=== PATIENT | female | born 1965 | race Caucasian/White ===

== ENCOUNTER 2018-07-04 09:59 | Outpatient (REF) | payer BC, SELFPAY ==
[2018-07-04 13:24] LABS: Abs Immature Grans 0.01 k/cumm (0.0-0.09); Absolute Basophil Count 0.07 k/cumm (0.0-0.2); Absolute Eosinophil Count 0.23 k/cumm (0.0-0.7); Absolute Monocyte Count 0.57 k/cumm (0.11-0.7); Absolute Neutrophil Count 2.31 k/cumm (1.2-6.7); Basophils % 1.3; Eosinophils % 4.3; HCT 40.4 % (36.0-46.0); HGB 13.6 g/dL (12.0-15.5); Immature Grans % 0.2; Lymphocytes % 40.8; Mean Corp. HGB Concentration 33.7 g/dL (32.0-36.0); Mean Corpuscular Hemoglobin 31.1 pg (27.0-33.0); Mean Corpuscular Volume 92.4 fL (80-95); Mean Platelet Volume 13.9 fL (8.0-11.0); Monocytes % 10.6; Neutrophils % 42.8; Platelet Count 241 x1000/uL (130-400); RBC 4.37 m/cumm (4.00-5.20); RBC Distribution Width 12.4 % (11.7-14.6); White Blood Cell Count 5.39 k/cumm (4.4-10.8)
[2018-07-04 13:46] LABS: ALT 29 U/L (12-78); AST 22 U/L (15-37); Albumin 3.8 g/dL (3.4-5.0); Alkaline Phosphatase 56 U/L (46-116); Anion Gap 8.2 mmol/L (3-11); BUN 14 mg/dL (7-18); Bilirubin, Total 0.5 mg/dL (0.2-1.0); CO2 26.8 mmol/L (21.0-32.0); CREATININE 0.78 mg/dL (0.55-1.02); Calcium 9.1 mg/dL (8.5-10.1); Chloride 104 mmol/L (98-107); Glucose 91 mg/dL (70-100); Potassium 4.6 mmol/L (3.5-5.1); Sodium 139 mmol/L (136-145); TSH (W/Ref FT4) 1.69 uIU/mL (0.358-3.74)
[2018-07-04 14:08] LABS: ESR 6 MM/HR (0-30)
[2018-07-04 14:14] LABS: C-Reactive Protein 0.11 mg/dL (0.0-0.3)
== END 2018-07-04 10:19 ==
LOC: NCHCN 09:59
PROVIDERS: Visit Provider Family Medicine
DX: R51 Headache (principal); R53.83 Other fatigue
CPT/HCPCS: 80053; 85652; 84443; 85025; 86140

== ENCOUNTER 2019-01-28 01:11 | Outpatient (CLI) | payer BC, SELFPAY ==
--- NOTE | 2019-01-28 16:38 | DI.MAMMO_ITS ---
SYMPTOMS/DIAGNOSIS: SCREENING, Z12.31 MAMMOGRAM: Mammograms were interpreted according to the usual protocol including computer analysis with CAD system, tomosynthesis and C view imaging. The breasts are of moderate density with fairly symmetrical distribution of fibroglandular tissue. No dominant mass or clumped microcalcification is identified in either breast. Current examination is compared with the previous examinations including January 2017 and there is a question of increased prominence of a focal area of asymmetric density with a vaguely nodular appearance in the upper outer quadrant of the left breast. Additional mammographic views of the left breast are requested to include MLO and CC spot compression views. Left breast ultrasound recommended, as well. CONCLUSION: Additional mammographic views of the left breast requested as described above. Breast ultrasound also recommended. Category 0, breast density category B. MQSA ASSESSMENT OF FINDINGS: Incomplete: Needs additional imaging evaluation. Category 0. Patient will receive a letter notifying them of these results. BI-RADS category B. There are scattered areas of fibroglandular density.
== END 2019-01-28 01:31 ==
PROVIDERS: PCP Nurse Practitioner Family; Visit Provider Nurse Practitioner Family
DX: Z12.31 Encounter for screening mammogram for malignant neoplasm of breast (principal); R92.8 Other abnormal and inconclusive findings on diagnostic imaging of breast
CPT/HCPCS: 77063; 77067

== ENCOUNTER 2019-01-30 01:01 | Outpatient (CLI) | payer BC, SELFPAY ==
--- NOTE | 2019-01-30 14:47 | DI.COMBO_ITS ---
SYMPTOM/DIAGNOSIS: F/U MAMMO, INCREASED PROMINENCE OF ASYMMETRIC DENSITY LEFT BREAST ADDITIONAL VIEWS AND LEFT BREAST ULTRASOUND: Additional images are interpreted according to the usual protocol including tomosynthesis and 2D imaging. Additional mammographic views of the left breast and left breast ultrasound are interpreted in conjunction. These examinations were obtained to evaluate questionable area of asymmetric density in the upper outer quadrant of the left breast seen on recent mammogram. Additional mammographic views fail to show a discrete mass. Breast ultrasound shows no evidence of a mass or cyst. CONCLUSION: No specific evidence of malignancy at this time. A follow up unilateral left breast mammogram is recommended in 6 months. Category 3. Breast density, Category B. MQSA ASSESSMENT OF FINDINGS: Probably benign. Six month follow-up recommended. Category 3. Patient will receive a letter notifying them of these results. BI-RADS category B. There are scattered areas of fibroglandular density.
== END 2019-01-30 01:21 ==
PROVIDERS: PCP Nurse Practitioner Family; Visit Provider Nurse Practitioner Family
DX: Z12.31 Encounter for screening mammogram for malignant neoplasm of breast (principal); R92.8 Other abnormal and inconclusive findings on diagnostic imaging of breast; N64.59 Other signs and symptoms in breast
CPT/HCPCS: 76642; 77063; 77067

== ENCOUNTER 2019-08-12 00:53 | Outpatient (CLI) | payer BC, SELFPAY ==
--- NOTE | 2019-08-12 14:47 | DI.MAMMO_ITS ---
EXAM: MG MAMMO DIAGNOSTIC UNI CLINICAL HISTORY: F/U ABNL MAMMO, 6 MO. F/U, R92.8 TECHNIQUE: Mammograms were interpreted according to the usual protocol including computer analysis w [employer] system, tomosynthesis and C-view imaging. COMPARISON: Comparison with previous examinations including January 2019 FINDINGS: Unilateral left breast mammogram was performed. No mass or clumped microcalcification seen. Compari son with previous examinations including January 2019 with no significant interval change in appearance. IMPRESSION: No specific evidence of malignancy at this time. I would suggest that routine screening examinations resume with a bilateral mammogram in 6 months. Category 3, breast density category B. BI-RADS Cat 3 - Annual - Resume Annual Screening Breast Density - Category B - Scattered areas of fibroglandular density
== END 2019-08-12 01:13 ==
PROVIDERS: PCP Nurse Practitioner Family; Visit Provider Nurse Practitioner Family
DX: Z12.31 Encounter for screening mammogram for malignant neoplasm of breast (principal); R92.8 Other abnormal and inconclusive findings on diagnostic imaging of breast; N64.59 Other signs and symptoms in breast
CPT/HCPCS: 77061; 77065; G0279

== ENCOUNTER 2020-05-19 01:04 | Outpatient (CLI) | payer BC, SELFPAY ==
--- NOTE | 2020-05-19 | DI.MAMMO_ITS ---
EXAM: MG MAMMO SCREENING CLINICAL HISTORY: SCREENING,Z12.31 TECHNIQUE: Mammograms were interpreted according to the usual protocol including computer analysis w [employer] CAD system, tomosynthesis and C-view imaging. COMPARISON: FINDINGS: The breasts are of moderate density with fairly symmetrical distribution of fibroglandular tissue. N o dominant mass or clumped microcalcification is identified in either breast. The current examinatio n is compared with previous examinations including January 2019 and there has been no gross interval yue nge in appearance in comparison with the prior studies. IMPRESSION: No specific evidence of malignancy at this time. Routine screening examinations are suggested at yea rly intervals in this age group according to the ACS ACR guidelines. BI-RADS Category 1 - Negative Breast Density - Category B - Scattered areas of fibroglandular density
== END 2020-05-19 01:24 ==
PROVIDERS: PCP Nurse Practitioner Family; Visit Provider Nurse Practitioner Family
DX: Z12.31 Encounter for screening mammogram for malignant neoplasm of breast (principal)
CPT/HCPCS: 77063; 77067

== ENCOUNTER 2021-05-13 15:11 | Outpatient (REF) | payer BC, SELFPAY ==
--- NOTE | 2021-05-13 10:00 | PAPFT_PTH ---
PATIENT: Elyssa Shelley LOC: [facility]#:[id number] AGE/SX: 55/F ROOM: RE05/13/[address]: Nayely Haley : 1965 BED: DIS: 05/13/2021 SPEC #: [id number] RECD: 05/13/21 17:24 STATUS: KEVIN REDann #: [id number] JUAN: 05/13/21 10:[address]: Nayely Haley DEPT: REPLACED BY [facility] Cytology RECD BY: Karen Godinez Tissues: 1 - CX/ENDOCX FOR PAP SMEARS Procedures: PAP THIN PREP/UVM Screening Comments: [id number]
[2021-05-13 15:44] LABS: ALT 35 U/L (14-59); AST 19 U/L (15-37); Anion Gap 8.6 mmol/L (3-11); BUN 19 mg/dL (7-18); CO2 28.4 mmol/L (21.0-32.0); CREATININE 0.9 mg/dL (0.55-1.02); Calcium 9.7 mg/dL (8.5-10.1); Calculated LDL 209 mg/dL (<100); Chloride 103 mmol/L (98-107); Cholesterol 289 mg/dL (<200); Glucose 96 mg/dL (74-106); HDL Cholesterol 63 mg/dL (40-60); Potassium 4.9 mmol/L (3.5-5.1); Sodium 140 mmol/L (136-145); Triglyceride 87 mg/dL (<150)
[2021-05-14 10:14] LABS: HIV-1/2 Ag & Ab Screen Negative (Negative)
[2021-05-14 10:34] LABS: Hepatitis C Ab w Rflx HCV PCR Negative (Negative)
== END 2021-05-13 15:12 | disposition home or self-care (01) ==
LOC: NCHCN 15:11
PROVIDERS: PCP Nurse Practitioner Family; Visit Provider Nurse Practitioner Family
DX: Z00.00 Encounter for general adult medical examination without abnormal findings (principal); Z11.4 Encounter for screening for human immunodeficiency virus [HIV]; Z11.59 Encounter for screening for other viral diseases; Z12.4 Encounter for screening for malignant neoplasm of cervix; Z13.220 Encounter for screening for lipoid disorders
CPT/HCPCS: 80048; 80061; 86803; 87389; 88142; 84450; 84460

== ENCOUNTER 2021-11-02 01:48 | Outpatient (CLI) | payer BC, SELFPAY ==
--- NOTE | 2021-11-02 14:00 | DI.MAMMO_ITS ---
Exam(s) MAMMO SCREENING EXAM: MAMMO SCREENING CLINICAL HISTORY: SCREENING, Z12.31 TECHNIQUE: Bilateral full field digital CC and MLO mammographic images were obtained with 3D tomosyn thesis and utilizing computer aided detection (CAD). COMPARISON: Available for comparison. FINDINGS: Masses/Architectural Distortion: There is a 6 mm nodular density in the upper-outer quadrant of the r ight breast which should be further evaluated. This was not present on the prior examination. Microcalcifications: No suspicious pleomorphic-type are seen. Skin Thickening/Nipple Retraction: None. IMPRESSION: 1. 6 mm nodular density in the upper-outer quadrant of the right breast. 2. Spot compression views are requested for further evaluation. Ultrasound should be obtained at horace t time. BI-RADS Category 0 - Assessment Incomplete: Need additional imaging evaluation Breast Density - Category B - Scattered areas of fibroglandular density Breast density category C or D implies that the patient has dense breast tissue. Dense breast tissue is very common and is not abnormal but dense breast tissue can make it harder to find cancer on a ma mmogram. Also, dense breast tissue may increase their breast cancer risk. This information about the result of the mammogram report was provided to the patient to raise their awareness. Use this report when you speak with the patient about their risks for breast cancer, which includes their family hist ory. At that time, you may recommend for more screening tests (Ultrasound or MRI) as they might be us eful based on their risk. A negative radiographic report should not delay biopsy if a dominant or clinically suspicious mass is present. Up to ten percent of cancers are not identified on mammography. A negative report may reinforce clinical impression. Adenosis and dense breasts may obscure an underlying neoplasm. False positive reports average 6 to 10%. Patient will receive a letter notifying them of these results.
== END 2021-11-02 02:08 ==
PROVIDERS: PCP Nurse Practitioner Family; Visit Provider Nurse Practitioner Family
DX: Z12.31 Encounter for screening mammogram for malignant neoplasm of breast (principal); R92.8 Other abnormal and inconclusive findings on diagnostic imaging of breast
CPT/HCPCS: 77063; 77067

== ENCOUNTER 2021-11-09 00:44 | Outpatient (CLI) | payer BC, SELFPAY ==
--- NOTE | 2021-11-09 | DI.MAMMO_ITS ---
Exam(s) MG MAMMO SCREEN CALL BACK UNI US BREAST RT COMPLETE EXAM: MAMMO SCREEN CALL BACK UNI CLINICAL HISTORY: 6MM NODULAR DENSITY RT BREAST. TECHNIQUE: Unilateral spot mammographic images obtained with 3D tomosynthesisand utilizing computer aided detection (CAD). . Complete right breast Ultrasound was also performed, including all 4 quadrants, the retroareolar stanley on, and the ipsilateral axilla. COMPARISON: Prior mammograms were reviewed. This additional imaging was performed due to findings described on the recent screening mammogram of 11/02/2021. FINDINGS: Additional mammographic views performed todayrender this area less concerning. Ultrasound performed today reveals a solitary finding which is at the 8 o'clock position and has the appearance of a wider than taller 6 x 3 millimeter probable hemorrhagic microcyst. Exhibits neutral through transmission.. No other findings on ultrasound of the quadrants of the right breast and no s ignificant right axillary adenopathy. IMPRESSION: There is a 6 x 3 millimeter probable hemorrhagic microcyst at the 8 o'clock position probably corresp onds to the finding on the mammogram. Appropriate follow-up is repeat right breast imaging in 6 months, this to include repeat right breas t mammogram and ultrasound.. The patient was informed of these findings and recommendations prior to leaving the department today. BI-RADS Category 3 - 6 month - Probably Benign Finding: Recommend follow-up mammography in 6 months Breast Density - Category B - Scattered areas of fibroglandular density Breast density Category C or D implies that the patient has dense breast tissue. Dense breast tissue can make it harder to find cancer on a mammogram. Dense breast tissue is also associated with an incr eased risk of breast cancer. This information about the result of the mammogram report was provided to the patient to raise their awareness. Use this report when you speak with the patient about their risks for breast cancer, which includes their family history. At that time, you may recommend additional screening tests (Ultrasoun d or MRI) as these tests may add significant information. A negative radiographic report should not delay biopsy if a dominant or clinically suspicious mass is present. Up to ten percent of cancers are not identified on mammography. A negative report may reinforce clinical impression. Adenosis and dense breasts may obscure an underlying neoplasm. False positive reports average 6 to 10%. Patient will receive a letter notifying them of these results.
== END 2021-11-09 01:04 ==
PROVIDERS: PCP Nurse Practitioner Family; Visit Provider Nurse Practitioner Family
DX: Z12.31 Encounter for screening mammogram for malignant neoplasm of breast (principal); R92.8 Other abnormal and inconclusive findings on diagnostic imaging of breast; N60.01 Solitary cyst of right breast
CPT/HCPCS: 76642; 77063; 77067

== ENCOUNTER 2021-11-10 13:34 | Outpatient (REF) | payer BC, SELFPAY ==
[2021-11-10 17:08] LABS: ALT 39 U/L (14-59); AST 25 U/L (15-37); Albumin 3.9 g/dL (3.4-5.0); Alkaline Phosphatase 96 U/L (46-116); Bilirubin, Total 0.4 mg/dL (0.2-1.0); Calculated LDL 86 mg/dL (<100); Cholesterol 159 mg/dL (<200); HDL Cholesterol 66 mg/dL (40-60); Total Protein 7.2 g/dL (6.4-8.2); Triglyceride 38 mg/dL (<150)
[2021-11-10 17:17] LABS: Bilirubin, Direct 0.1 mg/dL (0.0-0.2)
== END 2021-11-10 13:35 | disposition home or self-care (01) ==
LOC: NCHCN 13:34
PROVIDERS: PCP Nurse Practitioner Family; Visit Provider Nurse Practitioner Family
DX: Z00.00 Encounter for general adult medical examination without abnormal findings (principal); R53.83 Other fatigue; R51.9 Headache, unspecified; R79.89 Other specified abnormal findings of blood chemistry
CPT/HCPCS: 80061; 80076

== ENCOUNTER 2022-06-02 17:52 | Outpatient (REF) | payer BC, SELFPAY ==
[2022-06-04 11:29] LABS: COVID-19 RT-PCR UVMMC Result Negative (Negative)
== END 2022-06-02 17:53 | disposition home or self-care (01) ==
LOC: LBN 17:52
PROVIDERS: PCP Nurse Practitioner Family; Visit Provider Physician Assistant Medical
DX: Z20.822 Contact with and (suspected) exposure to COVID-19 (principal); H92.01 Otalgia, right ear
CPT/HCPCS: U0003

== ENCOUNTER 2022-09-01 00:56 | Outpatient (CLI) | payer BC, SELFPAY ==
--- NOTE | 2022-09-01 | DI.US_ITS ---
Exam(s) US BREAST LT COMPLETE US BREAST RT COMPLETE MG MAMMO DIAGNOSTIC BI EXAM: MG MAMMO DIAGNOSTIC BI AND BILATERAL COMPLETE BREAST ULTRASOUND CLINICAL HISTORY: DIAGNOSTIC, HO ABNL MAMMO, R92.8,MICROCYST. TECHNIQUE: BILATERAL CC AND MLO mammographic images were obtained with 3D tomosynthesis technique an d utilizing computer aided detection (CAD). Also performed additional spot compression CC view of le ft breast. ALSO PERFORMED BILATERAL COMPLETE BREAST ULTRASOUND including all 4 quadrants of both breasts as well as both axillary regions. COMPARISON: Prior mammograms were reviewed, the most recent being October 2021.. Prior breast ultrasound also reviewed. FINDINGS: DIAGNOSTIC BILATERAL MAMMOGRAM: There are no CAD designations. In the right breast previously described findings actually less evident. No new mammographic finding s in the right breast. In the left breast on the CC view there is a small asymmetric density. We performed additional spot compression view in this renders this area less concerning and similar in appearance to prior mammogr ams. There are no new spiculated masses nor malignant-appearing microcalcification groups in either breast . There is no new architectural distortion or skin thickening-traction. BILATERAL COMPLETE BREAST ULTRASOUND: RIGHT BREAST: No evidence of solid nor significant cystic lesions in all 4 quadrants nor in the retro areolar region. Right axilla is negative for significant adenopathy. LEFT BREAST: No evidence of solid or significant cystic lesions. At the 4 o'clock position there is a small benign intramammary lipoma which is of no clinical significance. Left axilla is negative for significant adenopathy. IMPRESSION: 1. No radiographic evidence of malignancy 2. Negative bilateral complete breast ultrasound examinations. Appropriate follow-up is to keep this patient on a yearly mammogram schedule, with earlier imaging if a self detected breast change is noted.. The patient was informed of the findings and follow-up recommendations prior to leaving the [facility]. BI-RADS Category 2 - Benign Findings Breast Density - Category B - Scattered areas of fibroglandular density Breast density Category C or D implies that the patient has dense breast tissue. Dense breast tissue can make it harder to find cancer on a mammogram. Dense breast tissue is also associated with an incr eased risk of breast cancer. This information about the result of the mammogram report was provided to the patient to raise their awareness. Use this report when you speak with the patient about their risks for breast cancer, which includes their family history. At that time, you may recommend additional screening tests (Ultrasoun d or MRI) as these tests may add significant information. A negative radiographic report should not delay biopsy if a dominant or clinically suspicious mass is present. Up to ten percent of cancers are not identified on mammography. A negative report may reinforce clinical impression. Adenosis and dense breasts may obscure an underlying neoplasm. False positive reports average 6 to 10%. Patient will receive a letter notifying them of these results.
== END 2022-09-01 01:16 ==
LOC: DI 00:56
PROVIDERS: PCP Nurse Practitioner Family; Visit Provider Nurse Practitioner Family
DX: R92.8 Other abnormal and inconclusive findings on diagnostic imaging of breast (principal)
CPT/HCPCS: 76642; 77062; 77066; G0279

== ENCOUNTER 2023-01-10 13:29 | Outpatient (REF) | payer BC, SELFPAY ==
[2023-01-10 14:42] LABS: HCT 44.1 % (36.0-46.0); HGB 14.8 g/dL (11.2-15.7); MCH 30.1 pg (27.0-33.0); MCHC 33.6 % (32.0-36.0); MCV 90 fL (80-95); Platelet Count 235 10^3/uL (130-400); RBC 4.91 10^6/uL (3.93-5.22); RDW 12.4 % (11.7-14.6); RDW-SD 40.6 fL; WBC 5.81 10^3/uL (4.4-10.8)
[2023-01-10 15:01] LABS: ALT 40 U/L (14-59); AST 22 U/L (15-37); Alkaline Phosphatase 85 U/L (46-116); Anion Gap 9.8 mmol/L (3-11); BUN 14 mg/dL (7-18); Bilirubin, Total 0.4 mg/dL (0.2-1.0); CO2 28.2 mmol/L (21.0-32.0); CREATININE 0.8 mg/dL (0.55-1.02); Calcium 9.5 mg/dL (8.5-10.1); Calculated LDL 84 mg/dL (<100); Chloride 104 mmol/L (98-107); Cholesterol 158 mg/dL (<200); Estimated GFR 86.42 (mL/min/1.73m2); Glucose 96 mg/dL (74-106); HDL Cholesterol 62 mg/dL (40-60); Potassium 4.7 mmol/L (3.5-5.1); Sodium 142 mmol/L (136-145); Total Protein 7.6 g/dL (6.4-8.2); Triglyceride 64 mg/dL (<150)
== END 2023-01-10 13:30 | disposition home or self-care (01) ==
LOC: NCHCN 13:29
PROVIDERS: PCP Nurse Practitioner Family; Visit Provider Nurse Practitioner Family
DX: Z00.00 Encounter for general adult medical examination without abnormal findings (principal); E78.5 Hyperlipidemia, unspecified
CPT/HCPCS: 80053; 80061; 85027

== ENCOUNTER 2023-07-03 15:22 | Outpatient (CLI) | payer BC, SELFPAY ==
--- NOTE | 2023-07-03 15:15 | DI.RAD_ITS ---
Exam(s) XR KNEE RT 4V AP,LAT,SHARAD,PAT EXAM: XR KNEE RT 4V AP,LAT,SHARAD,PAT CLINICAL HISTORY: RIGHT KNEE PAIN. TECHNIQUE: 2D digital imaging was performed. Three views. COMPARISON: No exams were available for comparison FINDINGS: BONES: No acute fracture is present. No bony destructive lesion is seen. JOINTS: The knee is normally aligned. No joint effusion is seen. Joint spaces are maintained. Mild p eriarticular spurring throughout. SOFT TISSUE: Normal. IMPRESSION: Mild degenerative changes. DATA REPOSITORY: RADIATION DOSE DELIVERED:
== END 2023-07-03 15:23 | disposition home or self-care (01) ==
LOC: DIORS 15:22
PROVIDERS: PCP Nurse Practitioner Family; Referring Provider Nurse Practitioner Family; Visit Provider Student in an Organized Health Care Education/Training Program
DX: M25.561 Pain in right knee (principal)
CPT/HCPCS: 73564

== ENCOUNTER 2024-01-18 15:07 | Outpatient (REF) | payer BC, SELFPAY ==
[2024-01-18 14:55] LABS: HCT 40.4 % (36.0-46.0); HGB 14.1 g/dL (11.2-15.7); MCH 31.2 pg (27.0-33.0); MCHC 34.9 % (32.0-36.0); MCV 89 fL (80-95); RBC 4.52 10^6/uL (3.93-5.22); RDW 12.7 % (11.7-14.6); RDW-SD 41.6 fL; WBC 6.16 10^3/uL (4.4-10.8)
[2024-01-18 15:05] LABS: ALT 38 U/L (14-59); AST 26 U/L (15-37); Albumin 3.8 g/dL (3.4-5.0); Alkaline Phosphatase 78 U/L (46-116); Anion Gap 6.4 mmol/L (3-11); BUN 13 mg/dL (7-18); Bilirubin, Total 0.54 mg/dL (0.2-1.0); CO2 29.6 mmol/L (21.0-32.0); CREATININE 0.8 mg/dL (0.55-1.02); Calcium 9.6 mg/dL (8.5-10.1); Calculated LDL 90 mg/dL (<100); Chloride 105 mmol/L (98-107); Cholesterol 184 mg/dL (<200); Estimated GFR 85.89 (mL/min/1.73m2); Glucose 85 mg/dL (74-106); HDL Cholesterol 87 mg/dL (40-60); Potassium 4.4 mmol/L (3.5-5.1); Sodium 141 mmol/L (136-145); Total Protein 7.1 g/dL (6.4-8.2); Triglyceride 37 mg/dL (<150)
[2024-01-18 15:18] LABS: Platelet Count 189 10^3/uL (130-400)
== END 2024-01-18 15:08 | disposition home or self-care (01) ==
LOC: NCHCN 15:07
PROVIDERS: PCP Nurse Practitioner Family; Visit Provider Nurse Practitioner Family
DX: Z00.00 Encounter for general adult medical examination without abnormal findings (principal)
CPT/HCPCS: 80053; 80061; 85027

== ENCOUNTER → 2024-01-22 02:36 | Outpatient (CLI) | payer BC, SELFPAY ==
--- NOTE | 2024-01-22 | DI.MAMMO_ITS ---
Exam(s) US BREAST RT COMPLETE MG MAMMO DIAGNOSTIC BI EXAM: MG MAMMO DIAGNOSTIC BI AND COMPLETE RIGHT BREAST ULTRASOUND CLINICAL HISTORY: DIAGNOSTIC, RT BREAST LUMP, N63.10. TECHNIQUE: Both CC and MLO mammographic images both breasts were obtained with 3D tomosynthesis tech [employer]que and utilizing computer aided detection (CAD). Complete right breast ultrasound was performed including all 4 quadrants of the right breast as well as the right axilla COMPARISON: Prior mammograms were reviewed. This patient's provider felt a possible right breast tara mp during routine examination. The patient did not present to her provider within new self detected lump and the patient claims she does not feel this lump. FINDINGS: DIAGNOSTIC BILATERAL MAMMOGRAM: There has been no significant change in the appearance and distribution of the fibroglandular tissue. There are no new spiculated masses nor malignant-appearing microcalcification groups in either breast . Asymmetric tissue in the right breast is unchanged from prior mammograms. There is no new architectural distortion or skin thickening-traction. COMPLETE RIGHT BREAST ULTRASOUND: There is no evidence of solid nor significant lesions in all 4 quadrants of the right breast. Scanning of the right axilla is negative for adenopathy. IMPRESSION: No radiographic evidence of malignancy Negative complete right breast ultrasound The patient was informed of the findings and follow-up recommendations prior to leaving the [facility]. BI-RADS Category 2 - Benign Findings Breast Density - Category B - Scattered areas of fibroglandular density Breast density Category C or D implies that the patient has dense breast tissue. Dense breast tissue can make it harder to find cancer on a mammogram. Dense breast tissue is also associated with an incr eased risk of breast cancer. This information about the result of the mammogram report was provided to the patient to raise their awareness. Use this report when you speak with the patient about their risks for breast cancer, which includes their family history. At that time, you may recommend additional screening tests (Ultrasoun d or MRI) as these tests may add significant information. A negative radiographic report should not delay biopsy if a dominant or clinically suspicious mass is present. Up to ten percent of cancers are not identified on mammography. A negative report may reinforce clinical impression. Adenosis and dense breasts may obscure an underlying neoplasm. False positive reports average 6 to 10%. Patient will receive a letter notifying them of these results.
== END ==
PROVIDERS: PCP Nurse Practitioner Family; Visit Provider Nurse Practitioner Family
DX: N63.10 Unspecified lump in the right breast, unspecified quadrant (principal)
CPT/HCPCS: 76642; 77062; 77066; G0279

== ENCOUNTER 2025-01-21 16:19 | Outpatient (REF) | payer BC, SELFPAY ==
--- NOTE | 2025-01-21 09:30 | PAPFT_PTH ---
PATIENT: Elyssa Shelley LOC: [facility]#:[id number] AGE/SX: 59/F ROOM: RE01/21/[address]: Nayely Haley : 1965 BED: DIS: 01/21/2025 SPEC #: [id number] RECD: 01/21/25 17:53 STATUS: KEVIN REDann #: [id number] JUAN: 01/21/25 09:[address]: Nayely aHley DEPT: [facility] Cytology RECD BY: Karen Godinez Tissues: 1 - CX/ENDOCX FOR PAP SMEARS Procedures: PAP THIN PREP/UVM Screening HPV DNA PROBE Comments: [id number] (HPV 16 & 18/45)
[2025-01-21 16:07] LABS: HCT 40.8 % (36.0-46.0); HGB 13.9 g/dL (11.2-15.7); MCH 31.0 pg (27.0-33.0); MCHC 34.1 % (32.0-36.0); MCV 91 fL (80-95); MPV 14.1 fL (8.0-11.0); Platelet Count 185 10^3/uL (130-400); RBC 4.48 10^6/uL (3.93-5.22); RDW 12.1 % (11.7-14.6); RDW-SD 40.9 fL; WBC 7.40 10^3/uL (4.4-10.8)
[2025-01-21 16:46] LABS: ALT 38 U/L (14-59); AST 24 U/L (15-37); Albumin 3.8 g/dL (3.4-5.0); Alkaline Phosphatase 87 U/L (46-116); Anion Gap 4.0 mmol/L (3-11); BUN 16 mg/dL (7-18); Bilirubin, Total 0.3 mg/dL (0.2-1.0); CO2 31.0 mmol/L (21.0-32.0); Calcium 9.1 mg/dL (8.5-10.1); Calculated LDL 77 mg/dL (<100); Chloride 104 mmol/L (98-107); Cholesterol 153 mg/dL (<200); Estimated GFR 85.35 (mL/min/1.73m2); Glucose 86 mg/dL (74-106); HDL Cholesterol 63 mg/dL (>or=50); Potassium 4.3 mmol/L (3.5-5.1); Sodium 139 mmol/L (136-145); Total Protein 7.0 g/dL (6.4-8.2); Triglyceride 65 mg/dL (<150)
== END 2025-01-21 16:20 | disposition home or self-care (01) ==
LOC: NCHCN 16:19
PROVIDERS: PCP Nurse Practitioner Family; Visit Provider Nurse Practitioner Family
DX: Z00.00 Encounter for general adult medical examination without abnormal findings (principal); Z12.4 Encounter for screening for malignant neoplasm of cervix; Z01.419 Encounter for gynecological examination (general) (routine) without abnormal findings
CPT/HCPCS: 80053; 80061; 85027; 88142; 87624

== ENCOUNTER 2025-02-12 01:46 | Outpatient (CLI) | payer BC, SELFPAY ==
--- NOTE | 2025-02-12 12:50 | DI.MAMMO_ITS ---
Exam(s) MAMMO SCREENING EXAM: MAMMO SCREENING CLINICAL HISTORY: SCREENING Z12.31 TECHNIQUE: Bilateral full field digital CC and MLO mammographic images were obtained with 3D tomosynthesis and utilizing computer aided detection (CAD). COMPARISON: Comparison is made with prior examinations. FINDINGS: Masses/Architectural Distortion: There is a new nodular density in the inferior retroareolar region of the right breast measuring 5 mm is located 4 cm from the nipple on the MLO view. There is also a new nodular density in the upper central right breast on the MLO view also 4 cm from the nipple. There are no areas of architectural distortion present. Microcalcifications: No suspicious pleomorphic-type are seen. Skin Thickening/Nipple Retraction: None. IMPRESSION: 1. New nodular densities in the right breast as described above. 2. Spot compression views are requested for further evaluation. Ultrasound may be indicated at that time. BI-RADS Category 0 - Incomplete: Need additional imaging evaluation Breast Density - Category B - There are scattered areas of fibroglandular density. Breast density Category C or D implies that the patient has dense breast tissue. Dense breast tissue can make it harder to find cancer on a mammogram. Dense breast tissue is also associated with an increased risk of breast cancer. This information about the result of the mammogram report was provided to the patient to raise their awareness. Use this report when you speak with the patient about their risks for breast cancer, which includes their family history. At that time, you may recommend additional screening tests (Ultrasound or MRI) as these tests may add significant information. A negative radiographic report should not delay biopsy if a dominant or clinically suspicious mass is present. Up to ten percent of cancers are not identified on mammography. A negative report may reinforce clinical impression. Adenosis and dense breasts may obscure an underlying neoplasm. False positive reports average 6 to 10%. Patient will receive a letter notifying them of these results.
== END 2025-02-12 02:06 ==
PROVIDERS: PCP Nurse Practitioner Family; Visit Provider Nurse Practitioner Family
DX: Z12.31 Encounter for screening mammogram for malignant neoplasm of breast (principal); R92.323 Mammographic fibroglandular density, bilateral breasts
CPT/HCPCS: 77063; 77067

== ENCOUNTER 2025-02-17 02:25 | Outpatient (CLI) | payer BC, SELFPAY ==
--- NOTE | 2025-02-17 | DI.MAMMO_ITS ---
Exam(s) MG MAMMO SCREEN CALL BACK UNI US BREAST RT COMPLETE EXAM: MG MAMMO SCREEN CALL BACK UNI-RIGHT AND COMPLETE RIGHT BREAST ULTRASOUND CLINICAL HISTORY: F/U MAMMO, R92.8, NEW NODULAR DENSITIES RT BREAST. TECHNIQUE: Unilateral RIGHT BREAST spot mammographic images obtained with 3D tomosynthesisand utilizing computer aided detection (CAD). . Complete RIGHT breast Ultrasound was also performed, including all 4 quadrants, the retroareolar region, and the ipsilateral axilla. COMPARISON: Prior mammograms were reviewed. This additional imaging was performed due to findings described on the recent screening mammogram of 02/12/2025. FINDINGS: DIAGNOSTIC MAMMOGRAM: Additional mammographic views performed todaydoes not dissipate the 2 recently described findings.We proceeded with ultrasound COMPLETE RIGHT BREAST ULTRASOUND: Ultrasound performed today reveals a solitary finding which is at the 3 o'clock position and most probably corresponds to the larger of the 2 densities described on the recent mammogram. This has the appearance of a probable small conglomeration microcysts measuring 5 by 3 mm. Wider than taller. There is no associated decreased through transmission.. There are no other focal ultrasound findings in all 4 quadrants. Scanning of the ipsilateral axilla reveals no significant adenopathy. IMPRESSION: 1. There is a 3 o'clock position finding in the right breast measuring5 x 3 mm as described above which appears to correspond to the larger of the 2 findings described on the recent screening mammogram of 02/12/2025. The 2nd smaller finding does not have a corresponding finding on ultrasound. The finding which is seen appears to be a probable small conglomeration of microcysts, as described above. Appropriate follow-up discussed by myself with the patient today is feet right breast imaging in 6 months, to include repeat right breast mammogram and ultrasound. The patient was informed of these findings and recommendations myself prior to leaving the department today. BI-RADS Category 3 - 6 month - Probably Benign Finding: Recommend follow-up mammography in 6 months Breast Density - Category B - There are scattered areas of fibroglandular density. Breast density Category C or D implies that the patient has dense breast tissue. Dense breast tissue can make it harder to find cancer on a mammogram. Dense breast tissue is also associated with an increased risk of breast cancer. This information about the result of the mammogram report was provided to the patient to raise their awareness. Use this report when you speak with the patient about their risks for breast cancer, which includes their family history. At that time, you may recommend additional screening tests (Ultrasound or MRI) as these tests may add significant information. A negative radiographic report should not delay biopsy if a dominant or clinically suspicious mass is present. Up to ten percent of cancers are not identified on mammography. A negative report may reinforce clinical impression. Adenosis and dense breasts may obscure an underlying neoplasm. False positive reports average 6 to 10%. Patient will receive a letter notifying them of these results.
== END 2025-02-17 02:45 ==
LOC: DI 02:25
PROVIDERS: PCP Nurse Practitioner Family; Visit Provider Nurse Practitioner Family
DX: Z12.31 Encounter for screening mammogram for malignant neoplasm of breast (principal); R92.323 Mammographic fibroglandular density, bilateral breasts
CPT/HCPCS: 76642; 77063; 77067